=== PATIENT | male | born 1960 | race Two or more races ===

== ENCOUNTER 2018-12-20 09:46 | Day surgery (SDC) | payer OTHER ==
[2018-12-20] MEDS ORDERED: LIDOCAINE 2% (SDV) 5 ML INJ (11:28)
[2018-12-20] MEDS ORDERED: PROPOFOL 60 ML (11:28)
[2018-12-20] MEDS ORDERED: MIDAZOLAM 1 MG/ML 2 ML INJ (11:28)
[2018-12-20] MEDS ORDERED: ONDANSETRON 4 MG INJ IV (11:30)
== END 2018-12-20 14:49 | disposition home or self-care (01) ==
LOC: GIL 09:46
DX: K62.89 Other specified diseases of anus and rectum (principal); K64.8 Other hemorrhoids; K29.30 Chronic superficial gastritis without bleeding; K21.9 Gastro-esophageal reflux disease without esophagitis; E11.9 Type 2 diabetes mellitus without complications; E78.5 Hyperlipidemia, unspecified
CPT/HCPCS: 43239; 82962; 88305; 88312